=== PATIENT | female | born 1965 | race Hispanic/Latino ===

== ENCOUNTER 2018-08-10 21:52 | Observation (INO) | payer SELFPAY ==
[2018-08-10 22:43] LABS: #Basophils 0.1 thou/uL (0.0-0.2); #Eosinphils 0.2 thou/uL (0.0-0.7); #Lymphocytes 3.8 thou/uL (1.20-3.40); #Monocytes 0.4 thou/uL (0.11-0.59); #Neutrophils 4.4 thou/uL (1.40-6.50); %Basophils 1.2 % (0.0-1.0); %Eosinophils 2.5 % (0.0-10.0); %Lymphocytes 42.4 % (21.0-51.0); %Monocytes 4.1 % (0.0-10.0); %Neutrophils 49.9 % (42.0-75.0); Hemoglobin 13.9 g/dL (12.0-16.0); Mean Corpuscular HGB CONC 34.6 g/dL (32.0-36.0); Mean Corpuscular Hemoglobin 31.5 pg (27.0-31.0); Mean Corpuscular Volume 90.9 fL (78.0-98.0); Platelet Count 200 thou/uL (130-400); RBC Distribution Width 11.2 % (11.5-14.5); Red Blood Cell (RBC) Count 4.42 mill/uL (4.20-5.40); White Blood Cell (WBC) Count 8.9 thou/uL (4.8-10.8)
[2018-08-10 22:59] LABS: ALT (SGPT) 71 U/L (8-55); AST (SGOT) 42 U/L (5-34); Albumin 3.9 g/dL (3.5-5.0); Alkaline Phosphatase 156 U/L (40-150); Anion Gap 12 mmol/L (10-20); BUN (Urea Nitrogen) 11 mg/dL (9.8-20.1); Bilirubin, Total 0.5 mg/dL (0.2-1.2); Calc. Creatinine Clearance 0 mL/min (70-130); Calcium 9.7 mg/dL (7.8-10.44); Carbon Dioxide 26 mmol/L (22-29); Chloride 96 mmol/L (98-107); Estimated GFR-MDRD 72; Globulin 3.6 g/dL (2.4-3.5); Glucose 419 mg/dL (70-105); Protein, Total 7.5 g/dL (6.0-8.3); Sodium 130 mmol/L (136-145)
[2018-08-11] MEDS ORDERED: Aspirin Chewable 81 MG TAB ONE (03:08)
[2018-08-11 03:14] LABS: Troponin I Less than 0.010 ng/mL (< 0.028)
[2018-08-11] MEDS ORDERED: Zolpidem Tartrate 5 MG TAB PO PRN (03:25)
[2018-08-11] MEDS ORDERED: Ondansetron PF 4 MG/2 ML Vial IVP PRN (03:25)
[2018-08-11] MEDS ORDERED: HYDROcodone/Acetaminophen 5/325 mg Tablet PO PRN (03:25)
[2018-08-11] MEDS ORDERED: Acetaminophen 325 MG TAB PO PRN (03:25)
[2018-08-11] MEDS ORDERED: Guaifenesin DM 100-10/5 ML UDCUP PO PRN (03:25)
[2018-08-11] MEDS ORDERED: Benzonatate 100 MG CAP PO PRN (03:32)
[2018-08-11] MEDS ORDERED: Dextrose 5% in Water 1,000 ML IV PRN (03:34)
[2018-08-11] MEDS ORDERED: HumaLOG 300 UNITS/3 ML VIAL SC PRN (03:34)
[2018-08-11] MEDS ORDERED: Dextrose 50% Abboject 50 ML SYRINGE SLOW IVP PRN (03:34)
[2018-08-11 03:59] VITALS: BMI 29.9
[2018-08-11] MEDS ORDERED: cefTRIAXone\\ROCEPHIN 1 GM in Sodium Chloride 0.9% 100 ML IVPB SCH (04:00)
--- NOTE | 2018-08-11 04:42 | HP ---
ADMITTING COMPLAINT: Cough and chest pain. HISTORY OF PRESENT ILLNESS: This is a 52-year-old female, being seen in the ER because of chest pain and coughing. The patient had a chest x-ray as well as CT scan performed in the ER and was found to have a mediastinal lymphadenopathy as well as some mild chest discomfort and cough. The patient states that she denies any nausea, vomiting, diarrhea, constipation, fevers, chills, or shortness of breath. She does admit to prior history of hypertension and diabetes. She states that she has never had any cardiac issues. She does not see any other specialist apart from internal medicine doctor. The patient was seen and examined in the ER. Denies any alleviating or aggravating factors. No other associated symptoms. Daughter is at bedside. All questions were answered. ALLERGIES: NO KNOWN DRUG ALLERGIES. REVIEW OF SYSTEMS: All systems reviewed, pertinent positive in the HPI. SOCIAL HISTORY: Nondrinker and nonsmoker. FAMILY HISTORY: Positive for hypertension and diabetes. PAST MEDICAL HISTORY: Hypertension and diabetes mellitus type 2. HOME MEDICATIONS: See MAR. PHYSICAL EXAMINATION: VITAL SIGNS: Blood pressure is 118/88, respiratory rate of 18, temperature of 99, and O2 saturation is 100% on room air. GENERAL: The patient is lying in bed, in no acute discomfort. HEENT: Pupils are equal, round, and reactive to light and accommodation. Oral cavity is moist and pink. NECK: Supple, mobile, and nontender. Thyroid appreciated. CARDIOVASCULAR: S1 and S2. No murmurs, rubs, or gallops appreciated. PULMONARY: Clear to auscultation bilaterally. No respiratory distress. No increase in AP diameter. ABDOMEN: Positive bowel sounds. Soft, nontender, and nondistended. EXTREMITIES: 2+ peripheral pulses noted. No cyanosis, clubbing, or edema. NEUROLOGIC: Cranial nerves 2 through 12 are intact. No loss of motor or sensory function. LABORATORY DATA: Laboratory antoine: CBC reviewed. Basic metabolic panel reviewed. Sodium found to be 130. DIAGNOSTIC DATA: CT reviewed. Chest x-ray reviewed, dictations also reviewed over the phone. Official reading is pending. ASSESSMENT: 1. Lymphadenopathy. 2. Chest pain. 3. Hypertension. 4. Diabetes mellitus. PLAN: At this point in time, we will admit the patient to observation services. We will start the patient on p.r.n. medication for cough. We will also provide the patient with azithromycin and Rocephin. We will obtain blood cultures, echo, blood pressure/home medications to be continued. The patient is stable with normal white count, can likely be discharged tomorrow with p.o. antibiotics, followed up outpatient. Repeat chest x-ray in 2 weeks once the antibiotic course is completed. Case and plan were discussed with the patient and daughter at length in [place] and in [place], they wish that the patient remains a full code. Case and plan were again discussed at length. They understand and agree with this plan. Job ID: [id number]
[2018-08-11 04:44] LABS: #Basophils 0.1 thou/uL (0.0-0.2); #Eosinphils 0.2 thou/uL (0.0-0.7); #Lymphocytes 3.2 thou/uL (1.20-3.40); #Monocytes 0.3 thou/uL (0.11-0.59); #Neutrophils 3.5 thou/uL (1.40-6.50); %Basophils 1.5 % (0.0-1.0); %Eosinophils 3.1 % (0.0-10.0); %Lymphocytes 43.1 % (21.0-51.0); %Monocytes 4.4 % (0.0-10.0); Hemoglobin 13.7 g/dL (12.0-16.0); Mean Corpuscular HGB CONC 33.3 g/dL (32.0-36.0); Mean Corpuscular Hemoglobin 30.4 pg (27.0-31.0); Mean Corpuscular Volume 91.4 fL (78.0-98.0); Mean Platelet Volume 7.7 fL (7.4-10.4); Platelet Count 201 thou/uL (130-400); RBC Distribution Width 11.3 % (11.5-14.5); Red Blood Cell (RBC) Count 4.51 mill/uL (4.20-5.40); White Blood Cell (WBC) Count 7.3 thou/uL (4.8-10.8)
[2018-08-11] MEDS ORDERED: Azithromycin 500 MG in Sodium Chloride 0.9% 250 ML 250 ML IVPB SCH (05:00)
[2018-08-11 05:05] LABS: Anion Gap 12 mmol/L (10-20); BUN (Urea Nitrogen) 11 mg/dL (9.8-20.1); Calc. Creatinine Clearance 109 mL/min (70-130); Calcium 9.2 mg/dL (7.8-10.44); Carbon Dioxide 26 mmol/L (22-29); Chloride 99 mmol/L (98-107); Estimated GFR-MDRD 86; Glucose 282 mg/dL (70-105); Potassium 3.5 mmol/L (3.5-5.1); Sodium 133 mmol/L (136-145)
[2018-08-11 05:18] LABS: Troponin I Less than 0.010 ng/mL (< 0.028)
[2018-08-11] MEDS: Insulin Regular 300 UNITS/3 ML VIAL SC PRN ×2 (07:01→12:51)
[2018-08-11] MEDS ORDERED: Aspirin 81 mg Enteric Coated Tablet PO SCH (09:00)
[2018-08-11] MEDS ORDERED: Lisinopril 2.5 MG TAB PO SCH (09:00)
[2018-08-11] MEDS ORDERED: Enoxaparin Sodium 40 MG/0.4 ML SYRINGE SC SCH (09:00)
--- NOTE | 2018-08-11 09:33 | RAD ---
FRONTAL RADIOGRAPH CHEST: 08/10/2018 HISTORY: Chest pain. COMPARISON: 06/15/2014 FINDINGS: There is no pneumothorax or pleural fluid and no focal consolidation or alveolar edema. Heart and me diastinal contours are unremarkable. There is right lateral osteophyte formation involving the mid t horacic spine. IMPRESSION: No acute findings. POS: [facility]
--- NOTE | 2018-08-11 09:34 | ULT ---
RIGHT UPPER QUADRANT ULTRASOUND: 08/10/2018 HISTORY: Right upper quadrant pain. COMPARISON: None. TECHNIQUE: Multiplanar rodriguez-scale sonographic imaging of the right upper quadrant provided. FINDINGS: The patient is status post cholecystectomy. The pancreas appears grossly unremarkable, as does the h epatic parenchyma. The common bile duct measures 6 mm, within normal limits. The right kidney measures 10.2 cm in craniocaudal dimension and demonstrates no evidence for stone, h ydronephrosis, or mass lesion. IMPRESSION: 1. No acute findings. 2. Status post cholecystectomy. POS: [facility]
--- NOTE | 2018-08-11 09:41 | CT ---
CTA OF THE THORAX UTILIZING IV CONTRAST AND 3D REFORMATTED IMAGING: INDICATION: A 52-year-old female with intermittent chest pain ongoing for 8 days with referral to the back. The patient reports it is a squeezing sensation and makes the patient dyspneic. COMPARISON: Prior CT of the chest, abdomen, and pelvis dated 09/19/2014. FINDINGS: No definite central or segmental pulmonary embolus is evident. There are patchy areas of suspected s egmental volume loss involving the lower lobes. No confluent airspace opacity, pleural effusion, or pneumothorax is evident. No enlarged mediastinal or hilar lymph nodes are evident. There is a nonsp ecific enlarged left axillary lymph node measuring 1.2 cm. The gallbladder is surgically absent. Ad renal glands appear within normal limits. No focal hepatic lesion is evident. No definite acute osseous abnormality is evident. There is scattered degenerative osteoarthritic aruna nge. IMPRESSION: 1. No central or segmental pulmonary embolus. 2. Nonspecific enlarged left axillary lymph node. POS: [facility]
[2018-08-11 12:15] VITALS: BP 101/59; TEMP 98.6
[2018-08-11] MEDS ORDERED: Iopamidol 370 76% 100 ML VIAL ONE (14:02)
--- NOTE | 2018-08-11 19:14 | DIS ---
DATE OF ADMISSION: 08/11/2018 DATE OF DISCHARGE: 08/11/2018 DIAGNOSES AT THE TIME OF DISCHARGE: 1. Chest pain related to left pectoralis muscle strain. 2. Hypertension. 3. Diabetes mellitus. HOSPITAL COURSE: The patient is a 52-year-old female, who came to the emergency room with chest pain and coughing; although, she denies any coughing during this hospitalization. She had a chest x-ray done. CT scan of the chest to evaluate her chest pain, acute PE was ruled out. She denied any nausea, vomiting, diarrhea, constipation, fevers, chills, or shortness of breath. She has history of hypertension and diabetes mellitus. She never had any cardiac issues prior to this hospitalization. At the time of emergency room visit, her lab work was unremarkable except for sodium, which was 130. Chest x-ray was within normal limits. CT angiogram of the chest showed no PE, just nonspecific left axillary lymph node enlargement. Abdominal ultrasound was done, which did not show any acute abnormalities, status post cholecystectomy. The patient is doing well. She does not complains about any cough or congestion. No wheezing. She complains about the left upper chest pain on palpation. PHYSICAL EXAMINATION: VITAL SIGNS: Blood pressure is 101/59, pulse is 76, temperature is 98.6, maximal temperature during this hospitalization is 98.2, respiratory rate is 20, and O2 saturation 94% on room air. HEENT: Head is atraumatic and normocephalic. Eyes are PERRLA. Sclerae nonicteric. Oral mucosa is moist. LUNGS: Clear. HEART: S1 and S2 normal. No S3. No S4. No any murmur. The left upper chest area, where the left pectorals muscle is, tender to palpation. ABDOMEN: Soft and nontender. EXTREMITIES: No clubbing, cyanosis, or edema. NEUROLOGICAL: She is alert and oriented x4. There is no any motor or sensory deficits present. Cranial nerves are intact. LABORATORY DATA: Normal CBC. Normal BMP except for sodium, which is 133, and glucose is 264, she is advised to put ice pack over this left upper chest area and take ibuprofen 800 mg every 6 hours as needed along with metformin 1000 mg twice a day and insulin 70/30 at home dose usually she takes. Also, she will continue her lisinopril to 2.5 mg and she is going to follow up with her primary care physician in 1 week. ACTIVITIES: As tolerated. DIET: 2000 calories ADA diet. TIME SPENT: Time spent on this discharge is less than 30 minutes. Job ID: [id number]
[2018-08-11] MEDS ORDERED: Atorvastatin Calcium 40 MG TAB PO SCH (21:00)
== END 2018-08-11 15:26 | disposition home or self-care (01) ==
LOC: ERS 21:52 → 2SW 08-11 03:49
PROVIDERS: ADMIT Internal Medicine; ATTEND Internal Medicine
DX: S29.011A Strain of muscle and tendon of front wall of thorax, initial encounter (principal); R59.0 Localized enlarged lymph nodes; I10 Essential (primary) hypertension; E11.9 Type 2 diabetes mellitus without complications; Z79.4 Long term (current) use of insulin
CPT/HCPCS: 36415; 36416; 71045; 71275; 76705; 80048; 80053; 84484; 85025; 87040; 90471; 90732; 93005; 93306; 96365; 96366; 96372; 96375; G0009; G0378; J0456; J0696; J1650; J1815; J7050; Q9967

== ENCOUNTER 2018-09-10 22:24 | Emergency (ER) | payer SELFPAY ==
[2018-09-10 23:08] LABS: #Basophils 0.1 thou/uL (0.0-0.2); #Eosinphils 0.3 thou/uL (0.0-0.7); #Lymphocytes 4.1 thou/uL (1.20-3.40); #Monocytes 0.5 thou/uL (0.11-0.59); #Neutrophils 4.3 thou/uL (1.40-6.50); %Basophils 1.4 % (0.0-1.0); %Eosinophils 3.5 % (0.0-10.0); %Lymphocytes 43.5 % (21.0-51.0); %Monocytes 5.3 % (0.0-10.0); %Neutrophils 46.3 % (42.0-75.0); Hemoglobin 13.8 g/dL (12.0-16.0); Mean Corpuscular HGB CONC 33.5 g/dL (32.0-36.0); Mean Corpuscular Hemoglobin 31.1 pg (27.0-31.0); Mean Platelet Volume 7.5 fL (7.4-10.4); Platelet Count 211 thou/uL (130-400); RBC Distribution Width 11.3 % (11.5-14.5); Red Blood Cell (RBC) Count 4.43 mill/uL (4.20-5.40); White Blood Cell (WBC) Count 9.3 thou/uL (4.8-10.8)
[2018-09-10 23:26] LABS: ALT (SGPT) 49 U/L (8-55); AST (SGOT) 31 U/L (5-34); Albumin 3.8 g/dL (3.5-5.0); Alkaline Phosphatase 141 U/L (40-150); Anion Gap 10 mmol/L (10-20); BUN (Urea Nitrogen) 15 mg/dL (9.8-20.1); Bilirubin, Total 0.3 mg/dL (0.2-1.2); Calc. Creatinine Clearance 0 mL/min (70-130); Calcium 9.5 mg/dL (7.8-10.44); Carbon Dioxide 27 mmol/L (22-29); Chloride 103 mmol/L (98-107); Estimated GFR-MDRD 78; Globulin 3.5 g/dL (2.4-3.5); Glucose 278 mg/dL (70-105); Lipase 25 U/L (8-78); Potassium 3.8 mmol/L (3.5-5.1); Protein, Total 7.3 g/dL (6.0-8.3); Sodium 136 mmol/L (136-145)
[2018-09-11 00:45] LABS: Bilirubin Negative (Negative); Blood, Urine Negative (Negative); Clarity TURBID (Clear); Glucose, Urine (Dipstick) >=1000 mg/dL (Negative); Leukocyte Negative (Negative); Nitrite Negative (Negative); Protein, Urine (Dipstick) Negative (Neg-Trace); pH, Urine 6.5 (5.0-9.0)
== END 2018-09-11 05:24 | disposition left against medical advice (07) ==
LOC: ERS 22:24
DX: Z53.21 Procedure and treatment not carried out due to patient leaving prior to being seen by health care provider (principal)
CPT/HCPCS: 36415; 80053; 81003; 82010; 83690; 85025

== ENCOUNTER 2018-09-11 09:45 | Emergency (ER) | payer SELFPAY ==
[2018-09-11 11:07] LABS: #Basophils 0.1 thou/uL (0.0-0.2); #Eosinphils 0.3 thou/uL (0.0-0.7); #Lymphocytes 2.8 thou/uL (1.20-3.40); #Monocytes 0.4 thou/uL (0.11-0.59); #Neutrophils 3.2 thou/uL (1.40-6.50); %Basophils 0.8 % (0.0-1.0); %Eosinophils 3.8 % (0.0-10.0); %Lymphocytes 42.3 % (21.0-51.0); %Monocytes 5.7 % (0.0-10.0); %Neutrophils 47.5 % (42.0-75.0); Hemoglobin 13.8 g/dL (12.0-16.0); Mean Corpuscular HGB CONC 33.6 g/dL (32.0-36.0); Mean Corpuscular Hemoglobin 31.4 pg (27.0-31.0); Mean Corpuscular Volume 93.3 fL (78.0-98.0); Mean Platelet Volume 7.8 fL (7.4-10.4); Platelet Count 200 thou/uL (130-400); RBC Distribution Width 11.3 % (11.5-14.5); Red Blood Cell (RBC) Count 4.41 mill/uL (4.20-5.40); White Blood Cell (WBC) Count 6.7 thou/uL (4.8-10.8)
[2018-09-11 11:23] LABS: Bilirubin Negative (Negative); Blood, Urine Negative (Negative); Clarity CLEAR (Clear); Glucose, Urine (Dipstick) >=1000 mg/dL (Negative); Leukocyte Negative (Negative); Nitrite Negative (Negative); Protein, Urine (Dipstick) Negative (Neg-Trace); Specific Gravity, Urine 1.039 (1.002-1.036); pH, Urine 5.5 (5.0-9.0)
[2018-09-11 11:36] LABS: ALT (SGPT) 55 U/L (8-55); AST (SGOT) 36 U/L (5-34); Albumin 3.9 g/dL (3.5-5.0); Alkaline Phosphatase 139 U/L (40-150); Anion Gap 10 mmol/L (10-20); BUN (Urea Nitrogen) 15 mg/dL (9.8-20.1); Bilirubin, Total 0.7 mg/dL (0.2-1.2); Calc. Creatinine Clearance 0 mL/min (70-130); Calcium 9.7 mg/dL (7.8-10.44); Carbon Dioxide 28 mmol/L (22-29); Chloride 102 mmol/L (98-107); Estimated GFR-MDRD 81; Globulin 3.4 g/dL (2.4-3.5); Glucose 305 mg/dL (70-105); Lipase 17 U/L (8-78); Protein, Total 7.3 g/dL (6.0-8.3); Sodium 136 mmol/L (136-145)
[2018-09-11] MEDS ORDERED: Ketorolac Tromethamine 30 MG/ML VIAL ONE (12:21)
[2018-09-11] MEDS ORDERED: Dicyclomine 20 MG TAB ONE (12:21)
[2018-09-11] MEDS ORDERED: Ondansetron ODT 4 MG TAB ONE (12:21)
== END 2018-09-11 12:35 | disposition home or self-care (01) ==
LOC: ERS 09:45
DX: R10.9 Unspecified abdominal pain (principal); E11.65 Type 2 diabetes mellitus with hyperglycemia; E78.5 Hyperlipidemia, unspecified; I10 Essential (primary) hypertension
CPT/HCPCS: 36415; 80053; 83605; 83690; 85025; 96372; J1885; Q0162

== ENCOUNTER 2018-11-22 23:31 | Emergency (ER) | payer SELFPAY ==
[2018-11-23 00:10] LABS: #Basophils 0.1 thou/uL (0.0-0.2); #Eosinphils 0.3 thou/uL (0.0-0.7); #Lymphocytes 2.9 thou/uL (1.20-3.40); #Monocytes 0.6 thou/uL (0.11-0.59); #Neutrophils 7.5 thou/uL (1.40-6.50); %Basophils 0.6 % (0.0-1.0); %Eosinophils 2.4 % (0.0-10.0); %Lymphocytes 25.5 % (21.0-51.0); %Monocytes 5.1 % (0.0-10.0); %Neutrophils 66.4 % (42.0-75.0); Hemoglobin 13.7 g/dL (12.0-16.0); Mean Corpuscular HGB CONC 33.6 g/dL (32.0-36.0); Mean Corpuscular Hemoglobin 31.1 pg (27.0-31.0); Mean Corpuscular Volume 92.8 fL (78.0-98.0); Mean Platelet Volume 7.2 fL (7.4-10.4); Platelet Count 216 thou/uL (130-400); RBC Distribution Width 11.2 % (11.5-14.5); Red Blood Cell (RBC) Count 4.39 mill/uL (4.20-5.40); White Blood Cell (WBC) Count 11.3 thou/uL (4.8-10.8)
[2018-11-23 00:32] LABS: ALT (SGPT) 38 U/L (8-55); AST (SGOT) 21 U/L (5-34); Albumin 3.7 g/dL (3.5-5.0); Alkaline Phosphatase 136 U/L (40-150); Anion Gap 15 mmol/L (10-20); BUN (Urea Nitrogen) 14 mg/dL (9.8-20.1); Bilirubin, Total 0.6 mg/dL (0.2-1.2); Calc. Creatinine Clearance 0 mL/min (70-130); Calcium 9.2 mg/dL (7.8-10.44); Carbon Dioxide 22 mmol/L (22-29); Chloride 99 mmol/L (98-107); Estimated GFR-MDRD 73; Globulin 3.6 g/dL (2.4-3.5); Glucose 354 mg/dL (70-105); Lipase 18 U/L (8-78); Protein, Total 7.3 g/dL (6.0-8.3); Sodium 132 mmol/L (136-145)
[2018-11-23 01:02] LABS: Bilirubin Negative (Negative); Blood, Urine 1+ (Negative); Clarity Extra Turbid (Clear); Glucose, Urine (Dipstick) Greater than 1000 mg/dL (Negative); Leukocyte 500 Leu/uL (Negative); Nitrite Negative (Negative); Protein, Urine (Dipstick) 50 mg/dL (Neg-Trace); RBC/HPF 21-50 HPF (0-3); Urobilinogen Normal mg/dL (Less than 2); WBC/HPF Greater than 50 HPF (0-3)
[2018-11-23 01:04] LABS: Bacteria/HPF 1+ HPF (None Seen)
[2018-11-23] MEDS ORDERED: cefTRIAXone\\ROCEPHIN 1 GM VIAL ONE (01:18)
[2018-11-23] MEDS ORDERED: Morphine 4 MG/ML VIAL ONE (01:18)
[2018-11-23] MEDS ORDERED: Ondansetron PF 4 MG/2 ML Vial ONE (01:18)
== END 2018-11-23 03:26 | disposition home or self-care (01) ==
LOC: ERS 23:31
DX: R10.30 Lower abdominal pain, unspecified (principal); R10.811 Right upper quadrant abdominal tenderness; N39.0 Urinary tract infection, site not specified; E11.65 Type 2 diabetes mellitus with hyperglycemia; I10 Essential (primary) hypertension; E78.5 Hyperlipidemia, unspecified
CPT/HCPCS: 36415; 36416; 80053; 81003; 81015; 83690; 85025; 96361; 96365; 96375; J0696; J2270; J2405

== ENCOUNTER 2019-04-21 20:49 | Observation (INO) | payer MEDICAID, SELFPAY ==
[2019-04-21 21:47] LABS: #Lymphocytes 1.2 thou/uL (1.20-3.40); #Monocytes 0.3 thou/uL (0.11-0.59); %Basophils 0.4 % (0.0-1.0); %Eosinophils 0.5 % (0.0-10.0); %Lymphocytes 34.8 % (21.0-51.0); %Monocytes 7.5 % (0.0-10.0); Hemoglobin 15.2 g/dL (12.0-16.0); Mean Corpuscular HGB CONC 33.5 g/dL (32.0-36.0); Mean Corpuscular Volume 92.5 fL (78.0-98.0); Mean Platelet Volume 7.9 fL (7.4-10.4); Platelet Count 143 thou/uL (130-400); RBC Distribution Width 11.3 % (11.5-14.5); Red Blood Cell (RBC) Count 4.91 mill/uL (4.20-5.40); White Blood Cell (WBC) Count 3.4 thou/uL (4.8-10.8)
[2019-04-21 22:07] LABS: ALT (SGPT) 60 U/L (8-55); AST (SGOT) 41 U/L (5-34); Alkaline Phosphatase 150 U/L (40-110); Anion Gap 13 mmol/L (10-20); BUN (Urea Nitrogen) 9 mg/dL (9.8-20.1); Bilirubin, Total 0.4 mg/dL (0.2-1.2); Calc. Creatinine Clearance 0 mL/min (70-130); Calcium 9.7 mg/dL (7.8-10.44); Carbon Dioxide 23 mmol/L (22-29); Chloride 96 mmol/L (98-107); Estimated GFR-MDRD 55; Globulin 3.5 g/dL (2.4-3.5); Potassium 3.9 mmol/L (3.5-5.1); Protein, Total 7.5 g/dL (6.0-8.3); Sodium 128 mmol/L (136-145)
[2019-04-21 22:09] LABS: Magnesium 1.9 mg/dL (1.6-2.6); Phosphorus 3.6 mg/dL (2.3-4.7)
[2019-04-21 22:21] LABS: Glucose 649 mg/dL (70-105)
[2019-04-21] MEDS ORDERED: Insulin Regular 300 UNITS/3 ML VIAL ONE (22:43)
[2019-04-21 23:15] LABS: Bilirubin Negative (Negative); Blood, Urine Negative (Negative); Clarity Clear (Clear); Glucose, Urine (Dipstick) Greater than 1000 mg/dL (Negative); Leukocyte Negative Leu/uL (Negative); Nitrite Negative (Negative); Protein, Urine (Dipstick) Negative (Neg-Trace); Urobilinogen Normal mg/dL (Less than 2)
[2019-04-22] MEDS ORDERED: Senokot S 8.6-50 MG TAB PO PRN (00:42)
[2019-04-22] MEDS ORDERED: Dextrose 50% Abboject 50 ML SYRINGE SLOW IVP PRN (00:44)
[2019-04-22] MEDS ORDERED: Dextrose 5% in Water 1,000 ML IV PRN (00:44)
[2019-04-22] MEDS: Acetaminophen 325 MG TAB PO PRN ×2 (01:10→10:50)
--- NOTE | 2019-04-22 04:23 | HP ---
CHIEF COMPLAINT: Generalized weakness and chills. HISTORY OF PRESENT ILLNESS: The patient is a 53-year-old female with a history of diabetes, who presents to the hospital with complaints of generalized weakness and some chills and not feeling well for the past couple of days. The patient's daughter who was at the bedside has been translating. She stated that the patient has not been feeling well for the past couple of days and today she noticed her blood sugar reading very high, so they came into the ER for further evaluation. According to the family, the patient has been taking her Lantus and also has been taking her metformin. Denies any temperature. Denies any diarrhea. However, has not been eating very much for the past few days, has been feeling nauseous. Denies any chest pain or shortness of breath. PAST MEDICAL HISTORY: Includes hypertension, diabetes. PAST SURGICAL HISTORY: Cholecystectomy. REVIEW OF SYSTEMS: All negative except for the ones mentioned above in the HPI. PHYSICAL EXAMINATION: VITAL SIGNS: As of the following; temperature of 98.6, 76, 20, blood pressure 101/59. GENERAL: She is awake, alert, and oriented x3. Does not appear in any distress. HEENT: Normocephalic, atraumatic. No lymphadenopathy noted. Pupils equal and reactive to light. She did have some pain to her left ear area. Bilateral ear exam was done, I did not see any erythema. Her tympanic membrane appeared intact. CV: S1 and S2 present. No murmurs, rubs, or gallops. LUNGS: Clear to auscultation. No rhonchi or wheezes noted. ABDOMEN: Soft and nontender. Bowel sounds are present x2. EXTREMITIES: No edema. Pedal pulses present x2. SOCIAL HISTORY: She denies any alcohol use, drug use, or smoking history. She is a full code. FAMILY HISTORY: History of diabetes. LABORATORY RESULTS: Sodium of 128, potassium of 3.9, BUN of 9, creatinine of 1.04. Her sugar was 649. Had mildly elevated LFTs. Her lipase has not been checked. CBC: WBC of 3.4, hemoglobin of 15.2, hematocrit of 45.5. Her platelets are 143. Urine just indicated a lot of glucose, otherwise it was normal. She did not have a chest x-ray. ASSESSMENT AND PLAN: The patient is a very pleasant 53-year-old female who presents to the hospital with generalized body aches and pain and was found to be hyperglycemic. 1. Hyperglycemia-there is no diabetic ketoacidosis. The patient was given some IV hydration. We will continue that and will also start her on her home dose of insulin. We will check a hemoglobin A1c and continue to monitor. 2. Generalized weakness and chills. The patient's WBCs are a little bit lower, but she does not have any left shift. I will check her for flu. I will also get a chest x-ray. However, she has not been complaining of any cough, just body aches. I will hold off on starting any antibiotics for now. 3. Elevated liver function tests. The patient has had mild elevated liver function tests in the past. We will recheck another CMP in the morning. If they continue to be elevated, may consider getting a right upper quadrant ultrasound. The patient possibly could have a fatty liver disease. 4. Deep venous thrombosis prophylaxis. We will put the patient on some sequential compression devices. 5. The patient complains of a headache, frontal and occipital. She states that she has been having headaches in the past. I will also check an ESR on this lady just to make sure there is nothing else going on. Job ID: [id number]
[2019-04-22 06:05] LABS: #Lymphocytes 1.2 thou/uL (1.20-3.40); #Monocytes 0.2 thou/uL (0.11-0.59); #Neutrophils 1.1 thou/uL (1.40-6.50); %Basophils 0.7 % (0.0-1.0); %Eosinophils 0.9 % (0.0-10.0); %Lymphocytes 47.5 % (21.0-51.0); %Monocytes 9.3 % (0.0-10.0); %Neutrophils 41.6 % (42.0-75.0); Hemoglobin 13.4 g/dL (12.0-16.0); Mean Corpuscular HGB CONC 33.7 g/dL (32.0-36.0); Mean Corpuscular Hemoglobin 30.9 pg (27.0-31.0); Mean Corpuscular Volume 91.5 fL (78.0-98.0); Mean Platelet Volume 7.4 fL (7.4-10.4); Platelet Count 126 thou/uL (130-400); RBC Distribution Width 11.3 % (11.5-14.5); Red Blood Cell (RBC) Count 4.34 mill/uL (4.20-5.40); White Blood Cell (WBC) Count 2.6 thou/uL (4.8-10.8)
[2019-04-22 06:13] LABS: Hemoglobin A1c 12.9 % (4.0-6.0)
[2019-04-22 06:28] LABS: Anion Gap 8 mmol/L (10-20); BUN (Urea Nitrogen) 7 mg/dL (9.8-20.1); Calc. Creatinine Clearance 285 mL/min (70-130); Calcium 8.4 mg/dL (7.8-10.44); Carbon Dioxide 23 mmol/L (22-29); Chloride 105 mmol/L (98-107); Estimated GFR-MDRD Greater than 90; Glucose 248 mg/dL (70-105); Potassium 3.7 mmol/L (3.5-5.1); Sodium 132 mmol/L (136-145)
[2019-04-22] MEDS: HumaLOG 300 UNITS/3 ML VIAL SC PRN ×2 (06:58→12:46)
--- NOTE | 2019-04-22 07:39 | RAD ---
Chest AP view INDICATION: Weakness COMPARISON: August 10, 2018 FINDINGS: Lungs:The lungs are clear Cardiac silhouette:The cardiomediastinal silhouette appears within normal limits. Pulmonary vasculature:Normal Pleural spaces:No pleural effusion or pneumothorax is demonstrated. Upper abdomen:No abnormality seen. Osseous structures: No acute osseous abnormality. Additional findings:None. IMPRESSION: No acute cardiopulmonary abnormality.
[2019-04-22 07:54] VITALS: TEMP 98.6
[2019-04-22] MEDS ORDERED: Enoxaparin Sodium 40 MG/0.4 ML SYRINGE SC SCH (09:00)
[2019-04-22] MEDS ORDERED: Insulin Glargine 40 UNITS in Pre-Filled Syringe 1 EACH SC SCH (09:00)
[2019-04-22 11:38] VITALS: BP 140/79
--- NOTE | 2019-04-24 14:05 | DIS ---
DATE OF ADMISSION: 04/22/2019 DATE OF DISCHARGE: 04/22/2019 DISCHARGE DIAGNOSES: 1. Viral syndrome. 2. Hyperglycemia. 3. Elevated liver enzymes. HISTORY: This patient is a 53-year-old female with a history of diabetes mellitus, who presented to the hospital with generalized weakness and chills for a couple of days. She noted her blood sugars have been running very high at home as well. She had reportedly been taking her medications as prescribed, but had not been eating much because of feeling poorly and her initial workup was noted for a glucose of 649 with pseudohyponatremia. White count was 3.4. Chest x-ray was negative. She did have some elevation of her liver enzymes with AST 41, ALT 60, and alkaline phosphatase of 150. HOSPITAL COURSE: The patient was admitted, started on aggressive insulin therapy and her blood sugars did improve. Her thyroid was normal. Her hemoglobin A1c was 12.9 consistent with chronic severe hyperglycemia and poorly controlled diabetes. Her subsequent CBC revealed a white count of 2.6. She remained afebrile and it was felt ultimately that she was likely suffering from some type of underlying viral syndrome. Her respiratory viral panel was negative. The patient was feeling some better after some fluids and improvement in her blood sugars and was felt to be stable for discharge. DISCHARGE PHYSICAL EXAMINATION: VITAL SIGNS: At time of discharge, temperature was 98.6, pulse 92, respirations 20, O2 saturation was 96% on room air, blood pressure was 140/79. GENERAL: She was awake and alert. HEART: Regular rate and rhythm without murmurs. LUNGS: Clear bilaterally. ABDOMEN: Soft, nontender, nondistended. EXTREMITIES: No edema. DISPOSITION: The patient is discharged to home. She is to have a diabetic diet. ACTIVITY: As tolerated. FOLLOWUP: She is to follow up at the [facility] within 7 days and she already has that appointment scheduled fortunately. She will be on metformin with increased dose of 1000 mg t.i.d. with meals and she will continue with the insulin 40 units subcu every morning. She can return to the hospital should she have any need to do so prior to her followup. Job ID: [id number]
== END 2019-04-22 17:20 | disposition home or self-care (01) ==
LOC: ERS 20:49 → 3SE 04-22 00:22
PROVIDERS: ADMIT Internal Medicine; ATTEND Internal Medicine
DX: E11.65 Type 2 diabetes mellitus with hyperglycemia (principal); R74.8 Abnormal levels of other serum enzymes; B34.9 Viral infection, unspecified; I10 Essential (primary) hypertension; Z79.4 Long term (current) use of insulin; Z79.899 Other long term (current) drug therapy
CPT/HCPCS: 36415; 36416; 71045; 80048; 80053; 81003; 82010; 83036; 83735; 84100; 84443; 85025; 85652; 87633; 87798; 93005; 96361; 96372; 96374; G0378; J1650; J1815

== ENCOUNTER 2019-05-09 08:25 | Observation (INO) | payer MEDICAID, SELFPAY ==
[2019-05-09] MEDS ORDERED: Fentanyl 100 MCG/2 ML VIAL ONE (09:06)
[2019-05-09] MEDS ORDERED: Metoclopramide HCl 10 MG/2 ML VIAL ONE (09:07)
[2019-05-09 09:15] LABS: Bacteria/HPF None Seen HPF (None Seen); Bilirubin Negative (Negative); Blood, Urine Negative (Negative); Clarity Clear (Clear); Glucose, Urine (Dipstick) Greater than 1000 mg/dL (Negative); Leukocyte 75 Leu/uL (Negative); Nitrite Negative (Negative); Protein, Urine (Dipstick) 50 mg/dL (Neg-Trace); RBC/HPF 0-3 HPF (0-3); Urobilinogen Normal mg/dL (Less than 2)
[2019-05-09 09:18] LABS: Pregnancy Test - Urine (BHCG) Negative (Negative); Pregu Control Background? CLEAR/WHITE (CLR/WHITE); Pregu Control Bar Appear? YES (CONTROL BAR); Specific Gravity 1.042 (1.002-1.036)
[2019-05-09 09:32] LABS: #Lymphocytes 1.1 thou/uL (1.20-3.40); #Monocytes 0.5 thou/uL (0.11-0.59); #Neutrophils 3.5 thou/uL (1.40-6.50); %Basophils 0.6 % (0.0-1.0); %Eosinophils 0.7 % (0.0-10.0); %Lymphocytes 21.7 % (21.0-51.0); %Monocytes 8.7 % (0.0-10.0); %Neutrophils 68.3 % (42.0-75.0); Hemoglobin 14.5 g/dL (12.0-16.0); Mean Corpuscular HGB CONC 34.9 g/dL (32.0-36.0); Mean Corpuscular Hemoglobin 31.4 pg (27.0-31.0); Mean Platelet Volume 8.2 fL (7.4-10.4); Platelet Count 220 thou/uL (130-400); RBC Distribution Width 11.3 % (11.5-14.5); White Blood Cell (WBC) Count 5.1 thou/uL (4.8-10.8)
[2019-05-09 09:58] LABS: ALT (SGPT) 37 U/L (8-55); AST (SGOT) 26 U/L (5-34); Albumin 3.6 g/dL (3.5-5.0); Alkaline Phosphatase 120 U/L (40-110); Anion Gap 12 mmol/L (10-20); BUN (Urea Nitrogen) 16 mg/dL (9.8-20.1); Bilirubin, Total 0.9 mg/dL (0.2-1.2); Calc. Creatinine Clearance 0 mL/min (70-130); Calcium 8.4 mg/dL (7.8-10.44); Carbon Dioxide 20 mmol/L (22-29); Chloride 104 mmol/L (98-107); Estimated GFR-MDRD 86; Globulin 2.9 g/dL (2.4-3.5); Glucose 314 mg/dL (70-105); Lipase 11 U/L (8-78); Protein, Total 6.5 g/dL (6.0-8.3); Sodium 133 mmol/L (136-145)
[2019-05-09 10:05] LABS: Potassium 2.5 mmol/L (3.5-5.1)
[2019-05-09] MEDS ORDERED: Potassium Chloride 40 MEQ in Sodium Chloride 0.9% 250 ML 250 ML IVPB SCH ×2 (11:15→15:00)
--- NOTE | 2019-05-09 11:24 | CT ---
EXAM: CT abdomen and pelvis with IV contrast PROVIDED CLINICAL HISTORY: Abdominal pain COMPARISON: 07/11/2014 FINDINGS: The visualized lung bases are free of significant opacity. The solid abdominal organs demonstrate no acute abnormality. Stable left renal calculus. There is no bowel dilatation, inflammatory fat stranding, free fluid or free air apparent. There is n o evidence for appendicitis. Fluid density within the colon, which can be seen in the setting of a diarrheal illness. No regional lymph node enlargement apparent. The regional major vascular structures appear unremarkab le. The osseous structures demonstrate no concerning lytic or blastic lesions. IMPRESSION: Fluid density within the colon, which can be seen in the setting of a diarrheal illness.
[2019-05-09] MEDS ORDERED: Iopamidol-370 76% 500 ML 1 ML ONE (11:32)
[2019-05-09 11:35] LABS: Base Excess-Venous -3.3 mmol/L (-2.0 to 3.0); Bicarbonate (HCO3v) 21.9 mmol/L (22.0-28.0); CO2 Tension (PvCO2) 38.8 mmHg (40.0-50.0); Chloride 105 mmol/L (98-107); Hemoglobin - Calc 12.3 g/dL (12.0-16.0); Potassium 2.6 mmol/L (3.5-5.1); Sodium 135 mmol/L (138-145); vO2 Saturation-calc 96.7 % (60.0-85.0)
[2019-05-09 13:29] VITALS: BMI 29.5
[2019-05-09] MEDS ORDERED: HYDROcodone/Acetaminophen 5/325 mg Tablet PO PRN ×2 (13:32)
[2019-05-09] MEDS ORDERED: Acetaminophen 325 MG TAB PO PRN (13:32)
[2019-05-09] MEDS ORDERED: Ondansetron ODT 4 MG TAB SL PRN (13:32)
[2019-05-09] MEDS ORDERED: Lactated Ringer's 1,000 ML IV SCH (13:45)
[2019-05-09] MEDS ORDERED: Magnesium Sulfate 4 GM in Sodium Chloride 0.9% 250 ML 250 ML IVPB SCH (14:30)
[2019-05-09] MEDS ORDERED: Dextrose 5% in Water 1,000 ML IV PRN (14:41)
[2019-05-09] MEDS ORDERED: Dextrose 50% Abboject 50 ML SYRINGE SLOW IVP PRN (14:41)
[2019-05-09] MEDS ORDERED: Enoxaparin Sodium 40 MG/0.4 ML SYRINGE SC SCH (14:45)
--- NOTE | 2019-05-09 15:28 | HP ---
PRIMARY CARE PROVIDER: [facility]. CHIEF COMPLAINT: Abdominal pain with nausea, vomiting, and diarrhea. HISTORY OF PRESENT ILLNESS: A 53-year-old female with past medical history significant for obesity and insulin-requiring diabetes mellitus, who presents to the hospital with acute onset of diarrhea, nausea and vomiting. The patient reportedly developed diarrhea and subsequently nausea and vomiting about 4 hours after a meal of soup, which also was taken by other family members without any problem. Symptoms reportedly started on May 07 night and the patient has had frequent loose stools and nausea and vomiting since then. She reportedly had more than 20 frequent loose stools and emesis, yesterday, May 08. She admitted to generalized weakness, dizziness, and near syncope. She also admitted to chills, but denied fever, hematemesis, hematochezia, dysuria, hematuria, or melena. She admitted to abdominal pain, which started yesterday as was rated at 7/10 during my visit. Abdominal pain is said to be diffuse, involving the whole abdomen, but more marked on the left lower quadrant. She denied focal weakness, chest pain, cough, shortness of breath, nasal congestion, upper respiratory symptoms, or leg swelling. PAST MEDICAL HISTORY: 1. Trace mitral regurgitation. 2. Hypertension. 3. Diabetes mellitus. 4. Obesity. PAST SURGICAL HISTORY: Cholecystectomy. FAMILY HISTORY: Significant for diabetes and hypertension in both parents. SOCIAL HISTORY: The patient lives with family. Denied alcohol, drug use, or smoking. She wants to be full code. ALLERGIES: NO KNOWN DRUG ALLERGIES REPORTED. HOME MEDICATIONS: 1. Levemir 40 units daily in the morning. 2. Metformin 500 mg p.o. daily in the evening. REVIEW OF SYSTEMS: A 12-point review of system performed was negative other than pertinent positives and negatives included in the history of present illness. PHYSICAL EXAMINATION: VITAL SIGNS: Current vitals; temperature 98.8, pulse 102, respiratory rate 16, SpO2 of 97 on room air, and blood pressure is 117/55. GENERAL: Obese female, in no obvious distress. Afebrile. Anicteric. Acyanotic. HEENT: Normocephalic, atraumatic. Oral mucosa is moist. NECK: Supple, symmetrical, with no JVD. CARDIOVASCULAR: Regular rhythm and rate with normal heart sounds one and two. RESPIRATORY: Good air entry bilaterally with no crackles, rhonchi, or use of accessory muscles. GI: Obese, soft, with [id number] tenderness diffusely, more marked in left lower quadrant. Bowel sound is normoactive. EXTREMITIES: Grossly normal looking, atraumatic, with no edema or erythema. CREAM TESTER: Conscious, alert, and oriented x3 with appropriate mental status. Cranial nerves 2 through 12 are grossly intact. DIAGNOSTIC DATA: CBC showed WBC count of 5.1, hemoglobin of 14.5, MCV of 90, and platelets of 220. CMP showed sodium 133, potassium 2.5, chloride 104, CO2 of 20, BUN 16, creatinine 0.71, anion gap 12, glucose 314, calcium 8.4, total bilirubin 0.9, AST 26, ALT 37, alkaline phosphatase 120, total protein 6.5, albumin 3.6, and globulin 2.9. Magnesium is 1.4. Venous blood gas showed pH of 7.358 with pCO2 of 38.8. Urinalysis showed yellow clear urine with pH of 6.0, specific gravity of 1.042. Urine protein of 50 mg/dL, urine glucose more than 1000, ketones 100, negative blood, nitrite, bilirubin with normal urobilinogen. Leukocyte esterase was elevated at 75. Microscopy showed 0 to 3 rbc's and 7 to 10 wbc's with 10 to 20 squamous cells. Beta hydroxybutyrate was 1.14. CT scan of the abdomen and pelvis with contrast showed stable left renal calculus with no bowel dilatation, inflammatory fat stranding, free fluid or free air present. Fluid density within the colon is noted and this could be seen in the setting of diarrheal illness. ASSESSMENT: 1. Acute gastroenteritis. Most likely related to food poisoning. 2. Insulin-requiring diabetes mellitus with early mild diabetic ketoacidosis. 3. Volume contraction. 4. Severe hypokalemia. 5. Hypomagnesemia. 6. Physical deconditioning. PLAN: 1. IV fluid therapy with LR will be provided. 2. We will also replete serum potassium with potassium chloride both intravenously and orally. 3. We will replete serum magnesium with magnesium sulfate 4 g. 4. We will get stool culture panel. 5. We will continue insulin therapy. 6. We will, however, hold metformin. 7. Oral intake as tolerated will be commenced. 8. Antiemetic as needed also will be provided. 9. DVT prophylaxis with Lovenox as well as GI bleeding prophylaxis with Pepcid will be provided. 10. Code, full code. Further treatment to follow depending on hospital course. We will recheck electrolytes and CBC in the morning. Job ID: [id number]
[2019-05-09] MEDS: Lactated Ringer's 1,000 ML IV SCH ×2 (16:26→21:48)
[2019-05-09] MEDS: HumaLOG 300 UNITS/3 ML VIAL SC PRN (16:34)
[2019-05-09] MEDS: Famotidine/PF 20 mg/2ml Vial SLOW IVP SCH (20:23)
[2019-05-09] MEDS: Famotidine 20 MG TAB PO SCH (20:39)
[2019-05-09] MEDS ORDERED: HumaLOG 300 UNITS/3 ML VIAL SC PRN (22:24)
[2019-05-10] MEDS: Lactated Ringer's 1,000 ML IV SCH ×5 (04:45→20:50)
[2019-05-10 05:21] LABS: Hemoglobin A1c 12.3 % (4.0-6.0)
[2019-05-10 05:40] LABS: ALT (SGPT) 36 U/L (8-55); AST (SGOT) 37 U/L (5-34); Albumin 2.9 g/dL (3.5-5.0); Alkaline Phosphatase 102 U/L (40-110); Anion Gap 8 mmol/L (10-20); BUN (Urea Nitrogen) 11 mg/dL (9.8-20.1); Bilirubin, Total 0.6 mg/dL (0.2-1.2); Calc. Creatinine Clearance 128 mL/min (70-130); Calcium 7.8 mg/dL (7.8-10.44); Carbon Dioxide 22 mmol/L (22-29); Chloride 108 mmol/L (98-107); Estimated GFR-MDRD Greater than 90; Globulin 2.7 g/dL (2.4-3.5); Glucose 175 mg/dL (70-105); Potassium 4.2 mmol/L (3.5-5.1); Protein, Total 5.6 g/dL (6.0-8.3); Sodium 134 mmol/L (136-145)
[2019-05-10] MEDS: HumaLOG 300 UNITS/3 ML VIAL SC PRN ×2 (06:08→16:44)
[2019-05-10 06:22] LABS: Hemoglobin 11.7 g/dL (12.0-16.0); Mean Corpuscular HGB CONC 35.1 g/dL (32.0-36.0); Mean Corpuscular Hemoglobin 31.9 pg (27.0-31.0); Mean Corpuscular Volume 90.9 fL (78.0-98.0); Mean Platelet Volume 7.7 fL (7.4-10.4); Platelet Count 160 thou/uL (130-400); RBC Distribution Width 11.2 % (11.5-14.5); Red Blood Cell (RBC) Count 3.68 mill/uL (4.20-5.40); White Blood Cell (WBC) Count 4.6 thou/uL (4.8-10.8)
[2019-05-10 06:50] LABS: Band 13 % (5-11); Eosinophils 1 % (0-10); Lymphocytes 54 % (21-51); MDiff Complete? YES; Monocytes 7 % (0-10); Neutrophil 22 % (42-75); Reactive Lymphocytes 3 % (0-10)
[2019-05-10] MEDS: Famotidine/PF 20 mg/2ml Vial SLOW IVP SCH ×2 (07:55→19:14)
[2019-05-10] MEDS ORDERED: Insulin Glargine 40 UNITS in Pre-Filled Syringe 1 EACH SC SCH (09:00)
[2019-05-10] MEDS ORDERED: INSULIN DETEMIR 40 UNIT SC SCH (09:00)
[2019-05-10] MEDS: Enoxaparin Sodium 40 MG/0.4 ML SYRINGE SC SCH (09:06)
[2019-05-10] MEDS: Famotidine 20 MG TAB PO SCH ×2 (09:07→20:51)
--- NOTE | 2019-05-10 10:34 | PDOC.HOSPP ---
- Subjective Encounter Date: 05/10/19 Encounter Time: 10:32 Subjective: 53 y/o female with obesity, DM admitted with acute onset of frequent emesis and loose stools associated abdominal pain and with weakness. Feeling better. No fever, chest pain, SOB or dysuria. - Objective Vital Signs & Weight: Vital Signs (12 hours) Temp Pulse Resp BP BP Pulse Ox 05/10/19 08:08 98.5 F 97 16 112/56 L 96 05/10/19 04:42 97.7 F 95 18 98/53 L 95 Weight Weight 161 lb 11.2 oz I&O: 05/09/19 05/10/19 05/11/19 06:59 06:59 06:59 Intake Total 2906 Output Total 850 Balance 2055 Result Diagrams: 05/10/19 04:47 05/10/19 04:47 Additional Labs: Accuchecks 05/09/19 05/09/19 21:40 15:57 POC Glucose 228 H 232 H Hospitalist ROS - Medication Medications: Active Medications Generic Name Dose Route Start Last Admin Trade Name Freq PRN Reason Stop Dose Admin Enoxaparin Sodium 40 mg 05/10/19 09:00 05/10/19 09:06 Lovenox SC 40 mg 0900 DAMI Administration Famotidine 20 mg 05/09/19 21:00 05/10/19 07:55 Pepcid SLOW IVP Not Given Q12HR DAMI Famotidine 20 mg 05/09/19 21:00 05/10/19 09:07 Pepcid PO 20 mg BID DAMI Administration Insulin Glargine 40 units/ 0.4 mls @ 0 mls/hr 05/10/19 09:00 05/10/19 09:07 Miscellaneous Medication SC 0.4 mls QAM DAMI Administration As Directed Lactated Ringer's 1,000 mls @ 200 mls/hr 05/10/19 06:38 05/10/19 07:40 Lactated Ringer's IV Not Given .Q5H DAMI Insulin Human Lispro 0 units 05/09/19 14:41 05/10/19 06:08 Humalog SC 2 unit .MODERATE SLIDING SC PRN Administration Moderate Correctional Scale Insulin Human Lispro 0 units 05/09/19 22:24 05/09/19 22:38 Humalog SC 2 unit .BEDTIME SLIDING SC PRN Administration Bedtime Correctional Scale - Exam General Appearance: awake alert Eye: anicteric sclera ENT: normocephalic atraumatic Neck: symmetric, no JVD Heart: RRR, no murmur Respiratory: no wheezes, no rales, no ronchi, normal chest expansion Gastrointestinal: soft, non-tender, non-distended, normal bowel sounds Gastrointestinal - other findings: obese Extremities: no cyanosis, no edema Neurological: cranial nerve grossly intact, no focal deficits Psychiatric: A&O x 3 Hosp A/P (1) Acute gastroenteritis Code(s): K52.9 - NONINFECTIVE GASTROENTERITIS AND COLITIS, UNSPECIFIED Status : Acute (2) Uncontrolled diabetes mellitus Code(s): E11.65 - TYPE 2 DIABETES MELLITUS WITH HYPERGLYCEMIA Status: Acute (3) YANICK (acute kidney injury) Code(s): N17.9 - ACUTE KIDNEY FAILURE, UNSPECIFIED Status: Acute (4) Morbid obesity Code(s): E66.01 - MORBID (SEVERE) OBESITY DUE TO EXCESS CALORIES Status: Acute (5) Acute anemia Code(s): D64.9 - ANEMIA, UNSPECIFIED Status: Acute (6) Volume depletion Code(s): E86.9 - VOLUME DEPLETION, UNSPECIFIED Status: Acute (7) Hypokalemia Code(s): E87.6 - HYPOKALEMIA Status: Acute (8) Hypomagnesemia Code(s): E83.42 - HYPOMAGNESEMIA Status: Acute (9) Hyponatremia Code(s): E87.1 - HYPO-OSMOLALITY AND HYPONATREMIA Status: Acute - Plan increase IVF rate. Restart metformin Increase lantus to 50 given A1c of 12. Meteorology Faculty Member consult.
[2019-05-10] MEDS ORDERED: Insulin Glargine 10 UNITS in Pre-Filled Syringe 1 EACH SC SCH (10:45)
[2019-05-10] MEDS: metFORMIN 500 MG TAB PO SCH (16:12)
[2019-05-10] MEDS: Acetaminophen 325 MG TAB PO PRN (16:12)
[2019-05-10] MEDS: Ondansetron PF 4 MG/2 ML Vial IVP PRN (16:44)
[2019-05-11] MEDS: Acetaminophen 325 MG TAB PO PRN (00:24)
[2019-05-11] MEDS: Ondansetron PF 4 MG/2 ML Vial IVP PRN (00:25)
[2019-05-11] MEDS: Lactated Ringer's 1,000 ML IV SCH ×2 (01:53→07:15)
[2019-05-11 05:18] LABS: Mean Corpuscular HGB CONC 35.1 g/dL (32.0-36.0); Mean Corpuscular Hemoglobin 31.9 pg (27.0-31.0); Mean Corpuscular Volume 90.8 fL (78.0-98.0); Mean Platelet Volume 8.5 fL (7.4-10.4); Platelet Count 167 thou/uL (130-400); RBC Distribution Width 11.3 % (11.5-14.5); Red Blood Cell (RBC) Count 3.76 mill/uL (4.20-5.40); White Blood Cell (WBC) Count 4.7 thou/uL (4.8-10.8)
[2019-05-11 05:37] LABS: Anion Gap 11 mmol/L (10-20); BUN (Urea Nitrogen) 5 mg/dL (9.8-20.1); BUN/Creatinine Ratio 9.26; Calc. Creatinine Clearance 146 mL/min (70-130); Calcium 8.5 mg/dL (7.8-10.44); Carbon Dioxide 24 mmol/L (22-29); Chloride 106 mmol/L (98-107); Estimated GFR-MDRD Greater than 90; Glucose 106 mg/dL (70-105); Magnesium 1.5 mg/dL (1.6-2.6); Phosphorus 2.8 mg/dL (2.3-4.7); Potassium 3.5 mmol/L (3.5-5.1); Sodium 137 mmol/L (136-145)
[2019-05-11] MEDS ORDERED: Magnesium Sulfate 4 GM in Sodium Chloride 0.9% 250 ML 250 ML IVPB SCH (07:45)
[2019-05-11] MEDS: Famotidine/PF 20 mg/2ml Vial SLOW IVP SCH (08:57)
[2019-05-11] MEDS: Enoxaparin Sodium 40 MG/0.4 ML SYRINGE SC SCH (08:58)
[2019-05-11] MEDS: Famotidine 20 MG TAB PO SCH (08:58)
[2019-05-11] MEDS: metFORMIN 500 MG TAB PO SCH (08:58)
[2019-05-11] MEDS ORDERED: Insulin Glargine 50 UNITS in Pre-Filled Syringe 1 EACH SC SCH (09:00)
[2019-05-11 12:42] VITALS: BP 127/62; TEMP 98.4
--- NOTE | 2019-05-11 20:24 | DIS ---
DATE OF ADMISSION: 05/09/2019 DATE OF DISCHARGE: 05/11/2019 PRIMARY CARE PROVIDER: [facility]. DISCHARGE DIAGNOSES: 1. Acute gastroenteritis. 2. Uncontrolled diabetes mellitus with hemoglobin A1c of 12. 3. Early diabetic ketoacidosis. 4. Acute kidney injury. 5. Morbid obesity. 6. Metabolic acidosis. 7. Acute anemia. 8. Volume depletion. 9. Hypokalemia. 10. Hypomagnesemia. 11. Hyponatremia. HOSPITAL COURSE: A 53-year-old female with obesity, diabetes, admitted with acute onset of frequent emesis and loose stools associated with abdominal pain and generalized weakness as well as dizziness and near syncope. On presentation, the patient was found to have hyperglycemia as well as high anion gap metabolic acidosis and ketonemia. Impression of uncontrolled diabetes with early diabetic ketoacidosis due to acute gastroenteritis was made. The patient was started on aggressive IV fluids, as well as insulin therapy. Acute kidney injury noticed on presentation, resolved with IV fluid therapy. The patient also was found to have hyponatremia, which was felt to be due to volume contraction with appropriate ADH secretion. This resolved with IV fluid therapy. The patient also was found to have hypokalemia and hypomagnesemia, which were repleted appropriately. With IV fluid therapy, nausea, vomiting, abdominal pain, and dizziness resolved. Of note, stool culture panel and stool leukocytes were unremarkable. Diet was restarted and this was well tolerated. The patient remained stable and was subsequently discharged home. PHYSICAL EXAMINATION: VITAL SIGNS: Temperature 98.4, pulse 88, respiratory rate 16, SpO2 of 95% on room air, and blood pressure is 127/62. GENERAL: Obese female, in no obvious distress. Afebrile. Anicteric. Acyanotic. HEENT: Normocephalic, atraumatic. Oral mucosa is moist. NECK: Symmetric. Supple with no JVD. CARDIOVASCULAR: Regular rhythm and rate with normal heart sounds 1 and 2. RESPIRATORY: Good air entry bilaterally with no crackle or rhonchi or use of accessory muscles. GI: Full, soft, nontender, nondistended with normal bowel sounds. EXTREMITIES: Grossly normal looking atraumatic with no edema or erythema. CLINICAL ADMINISTRATOR: Conscious, alert, and oriented x3 with appropriate mental status. DISCHARGE CONDITION: Improved. DISCHARGE DISPOSITION: Home. DISCHARGE INSTRUCTION: Follow up with PCP in 7 days. The patient was advised to be compliant with medication as prescribed. DISCHARGE MEDICATIONS: 1. Humalog 0-15 units subcutaneously with meals according to sliding scale provided. 2. Levemir 50 units subcutaneously daily in the morning. 3. Metformin 500 mg p.o. b.i.d. This discharge took more than 33 minutes. Job ID: [id number]
--- NOTE | 2019-05-13 14:29 | EKG ---
Test Reason : ROUTINE Blood Pressure : / mmHG Vent. Rate : 100 BPM Atrial Rate : 100 BPM P-R Int : 150 ms QRS Dur : 090 ms QT Int : 374 ms P-R-T Axes : 029 -20 -06 degrees QTc Int : 482 ms Normal sinus rhythm Prolonged QT Abnormal ECG Confirmed by IBETH MERCADO, IVON ([id number]), mapping editor RADHA ANSARI ([id number]) on 05/13/2019 2:29:00 PM Referred By: Confirmed By:IVON CRISTINA MD
== END 2019-05-11 13:34 | disposition home or self-care (01) ==
LOC: ERS 08:25 → INTOOBSV 13:22 → 2SW 13:22
PROVIDERS: ADMIT Internal Medicine Nephrology; ATTEND Internal Medicine Nephrology
DX: K52.9 Noninfective gastroenteritis and colitis, unspecified (principal); E11.10 Type 2 diabetes mellitus with ketoacidosis without coma; E11.65 Type 2 diabetes mellitus with hyperglycemia; E87.6 Hypokalemia; E83.42 Hypomagnesemia; E78.5 Hyperlipidemia, unspecified; N17.9 Acute kidney failure, unspecified; D64.9 Anemia, unspecified; E86.9 Volume depletion, unspecified; E87.1 Hypo-osmolality and hyponatremia; E66.01 Morbid (severe) obesity due to excess calories; Z68.30 Body mass index [BMI] 30.0-30.9, adult; Z79.4 Long term (current) use of insulin
CPT/HCPCS: 36415; 36416; 74177; 80053; 80069; 81003; 81015; 81025; 82010; 82274; 82330; 82803; 83036; 83690; 83735; 84484; 85007; 85025; 85027; 87045; 87046; 87324; 87427; 87449; 93005; 96361; 96365; 96366; 96367; 96372; 96375; 96376; G0378; J1650; J1815; J2405; J2765; J3010; J3475; J3480; J7050; Q0162; Q9967

== ENCOUNTER 2019-06-13 16:39 | Observation (INO) | payer MEDICAID, SELFPAY ==
[~2019-06-13 16:39] MED LIST: Iopamidol-370 76% 500 ML 1 ML ONE
[2019-06-13 17:12] LABS: #Basophils 0.1 thou/uL (0.0-0.2); #Eosinphils 0.2 thou/uL (0.0-0.7); #Lymphocytes 3.5 thou/uL (1.20-3.40); #Monocytes 0.4 thou/uL (0.11-0.59); #Neutrophils 4.2 thou/uL (1.40-6.50); %Basophils 0.7 % (0.0-1.0); %Eosinophils 2.7 % (0.0-10.0); %Lymphocytes 41.7 % (21.0-51.0); %Monocytes 4.7 % (0.0-10.0); %Neutrophils 50.2 % (42.0-75.0); Mean Corpuscular Hemoglobin 30.9 pg (27.0-31.0); Mean Corpuscular Volume 90.8 fL (78.0-98.0); Mean Platelet Volume 7.6 fL (7.4-10.4); Platelet Count 230 thou/uL (130-400); RBC Distribution Width 11.4 % (11.5-14.5); Red Blood Cell (RBC) Count 4.52 mill/uL (4.20-5.40); White Blood Cell (WBC) Count 8.3 thou/uL (4.8-10.8)
[2019-06-13 17:32] LABS: ALT (SGPT) 39 U/L (8-55); AST (SGOT) 21 U/L (5-34); Albumin 4.2 g/dL (3.5-5.0); Alkaline Phosphatase 128 U/L (40-110); Anion Gap 11 mmol/L (10-20); BUN (Urea Nitrogen) 14 mg/dL (9.8-20.1); Bilirubin, Total 0.4 mg/dL (0.2-1.2); Calc. Creatinine Clearance 0 mL/min (70-130); Calcium 9.7 mg/dL (7.8-10.44); Carbon Dioxide 29 mmol/L (22-29); Chloride 102 mmol/L (98-107); Estimated GFR-MDRD 72; Globulin 3.2 g/dL (2.4-3.5); Glucose 223 mg/dL (70-105); Potassium 3.9 mmol/L (3.5-5.1); Protein, Total 7.4 g/dL (6.0-8.3); Sodium 138 mmol/L (136-145)
[2019-06-13] MEDS ORDERED: Morphine 4 MG/ML VIAL ONE (17:34)
[2019-06-13] MEDS ORDERED: Aspirin Chewable 81 MG TAB ONE (17:35)
[2019-06-13] MEDS ORDERED: Ketorolac Tromethamine 30 MG/ML VIAL ONE (17:35)
--- NOTE | 2019-06-13 17:42 | RAD ---
EXAM: CHEST ONE VIEW HISTORY: Chest pain COMPARISON: 04/22/2019 FINDINGS: The cardiac silhouette and pulmonary vasculature is within normal limits. The lungs are clear. There is a calcification adjacent9 to the right humeral head which may be secondary to calcific peritendinitis. There has been no significant interval change from prior study. IMPRESSION: No acute cardiopulmonary process.
--- NOTE | 2019-06-13 19:17 | CT ---
CTA OF THE CHEST 06/13/19 HISTORY: Sudden onset of right sided chest pain that began at 3 o'clock today. COMPARISON: 08/11/18. TECHNIQUE: Multiple contiguous axial images were obtained in a CTA of the chest with contrast per pulmonary embo lism protocol. 3D oblique MIP reformats were performed and direct coronal reformats were performed. FINDINGS: The pulmonary arteries are well opacified without filling defects to suggest pulmonary emboli. The he art is normal in size without focal cardiac abnormality. No hilar or mediastinal lymphadenopathy are seen. No focal infiltrates or nodules are seen in the lungs. No pneumothorax or pleural effusion are seen. The patient is status post cholecystectomy. The other visualized subdiaphragmatic structures are unre markable. Mild degenerative changes are seen in the spine. There is a prominent left axillary lymph n ode measuring 2.1 cm in size. The chest wall soft tissues are otherwise unremarkable. IMPRESSION: 1. No evidence of pulmonary thromboembolism. 2. Nonspecific enlarged left axillary lymph node. POS: [facility]
[2019-06-13 19:35] LABS: Bilirubin Negative (Negative); Blood, Urine Negative (Negative); Clarity Clear (Clear); Glucose, Urine (Dipstick) Greater than 1000 mg/dL (Negative); Leukocyte Negative Leu/uL (Negative); Nitrite Negative (Negative); Protein, Urine (Dipstick) 10 mg/dL (Neg-Trace); Urobilinogen Normal mg/dL (Less than 2)
[2019-06-13] MEDS ORDERED: Ondansetron PF 4 MG/2 ML Vial IVP PRN (21:44)
[2019-06-13] MEDS ORDERED: Ondansetron ODT 4 MG TAB SL PRN (21:44)
[2019-06-13] MEDS ORDERED: Lactated Ringer's 1,000 ML IV SCH (21:45)
[2019-06-13 22:09] VITALS: BMI 30.7
[2019-06-13] MEDS: Morphine 2 MG/ML SYRINGE SLOW IVP PRN (22:11)
[2019-06-14] MEDS: Morphine 2 MG/ML SYRINGE SLOW IVP PRN ×3 (03:05→23:20)
[2019-06-14] MEDS ORDERED: Acetaminophen 325 MG TAB PO PRN (07:39)
[2019-06-14] MEDS ORDERED: Bisacodyl 5 MG TAB PO PRN (07:39)
[2019-06-14] MEDS ORDERED: Ondansetron PF 4 MG/2 ML Vial IVP PRN (07:39)
[2019-06-14] MEDS ORDERED: Ondansetron ODT 4 MG TAB PO PRN (07:39)
[2019-06-14] MEDS ORDERED: Dextrose 50% Abboject 50 ML SYRINGE SLOW IVP PRN (07:41)
[2019-06-14] MEDS ORDERED: HumaLOG 300 UNITS/3 ML VIAL SC PRN (07:41)
[2019-06-14] MEDS ORDERED: Dextrose 5% in Water 1,000 ML IV PRN (07:41)
[2019-06-14] MEDS: Heparin 5,000 UNITS/ML VIAL SC SCH ×3 (08:28→21:00)
[2019-06-14] MEDS: HYDROcodone/Acetaminophen 5/325 mg Tablet PO PRN ×2 (08:29→15:07)
[2019-06-14] MEDS ORDERED: INSULIN DETEMIR 40 UNIT SC SCH (09:00)
[2019-06-14] MEDS ORDERED: Insulin Glargine 40 UNITS in Pre-Filled Syringe 1 EACH SC SCH (09:00)
[2019-06-14] MEDS ORDERED: Famotidine 20 MG TAB PO SCH (09:00)
[2019-06-14] MEDS ORDERED: Aspirin Chewable 81 MG TAB PO SCH (09:00)
[2019-06-14] MEDS ORDERED: ADENOSINE 60 MG/20 ML VIAL ONE (10:21)
--- NOTE | 2019-06-14 13:02 | NM ---
MYOCARDIAL PERFUSION SCAN: Patient was given 2 mCi of Technetium sestamibi for rest imaging and 30 mCi for stress imaging. INDICATION: Chest pain. The patient was stressed according to adenosine protocol. The left ventricle was imaged with SPECT i maging and CT attenuation. FINDINGS: On nonattenuation images there is symmetric and normal activity throughout the left ventricle on stre ss and rest images. Mild thinning in the inferolateral wall is symmetric on stress and rest images. No evidence of reversible ischemia. Ejection fraction recorded at 73%. IMPRESSION: No evidence of reversible ischemia. POS: [facility]
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
[2019-06-14] MEDS: Potassium Chloride 20 MEQ in Lactated Ringer's 1,000 ML IV SCH (15:09)
[2019-06-14] MEDS: Ibuprofen 800 MG TAB PO SCH (17:44)
[2019-06-14] MEDS: Famotidine 20 MG TAB PO SCH (17:44)
[2019-06-14] MEDS: HumaLOG 300 UNITS/3 ML VIAL SC PRN (17:44)
[2019-06-14] MEDS ORDERED: Atorvastatin Calcium 10 MG TAB PO SCH (21:00)
[2019-06-14] MEDS: Insulin Glargine 20 UNITS in Pre-Filled Syringe SC SCH (21:01)
[2019-06-15] MEDS: Morphine 2 MG/ML SYRINGE SLOW IVP PRN (04:24)
[2019-06-15] MEDS: Potassium Chloride 20 MEQ in Lactated Ringer's 1,000 ML IV SCH (04:27)
[2019-06-15 04:38] LABS: #Basophils 0.1 thou/uL (0.0-0.2); #Eosinphils 0.3 thou/uL (0.0-0.7); #Lymphocytes 2.5 thou/uL (1.20-3.40); #Monocytes 0.3 thou/uL (0.11-0.59); #Neutrophils 2.6 thou/uL (1.40-6.50); %Basophils 1.1 % (0.0-1.0); %Eosinophils 4.8 % (0.0-10.0); %Monocytes 4.6 % (0.0-10.0); %Neutrophils 45.5 % (42.0-75.0); Mean Corpuscular HGB CONC 35.4 g/dL (32.0-36.0); Mean Corpuscular Hemoglobin 32.5 pg (27.0-31.0); Mean Corpuscular Volume 91.8 fL (78.0-98.0); Mean Platelet Volume 7.2 fL (7.4-10.4); Platelet Count 179 thou/uL (130-400); RBC Distribution Width 11.4 % (11.5-14.5); Red Blood Cell (RBC) Count 3.99 mill/uL (4.20-5.40); White Blood Cell (WBC) Count 5.7 thou/uL (4.8-10.8)
[2019-06-15 04:59] LABS: Anion Gap 11 mmol/L (10-20); BUN (Urea Nitrogen) 14 mg/dL (9.8-20.1); Calc. Creatinine Clearance 121 mL/min (70-130); Calcium 8.7 mg/dL (7.8-10.44); Carbon Dioxide 24 mmol/L (22-29); Chloride 102 mmol/L (98-107); Estimated GFR-MDRD Greater than 90; Glucose 291 mg/dL (70-105); Sodium 133 mmol/L (136-145)
[2019-06-15] MEDS: HumaLOG 300 UNITS/3 ML VIAL SC PRN (05:42)
[2019-06-15] MEDS: HYDROcodone/Acetaminophen 5/325 mg Tablet PO PRN (05:50)
[2019-06-15] MEDS: Insulin Glargine 20 UNITS in Pre-Filled Syringe SC SCH (08:21)
[2019-06-15] MEDS: Famotidine 20 MG TAB PO SCH (08:21)
[2019-06-15] MEDS: Heparin 5,000 UNITS/ML VIAL SC SCH (08:21)
[2019-06-15] MEDS: Ibuprofen 800 MG TAB PO SCH (08:21)
[2019-06-15 08:34] VITALS: BP 116/57; TEMP 98.4
[2019-06-15] MEDS ORDERED: Aspirin 81 mg Enteric Coated Tablet PO SCH (09:00)
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
== END 2019-06-15 10:05 | disposition home or self-care (01) ==
LOC: ERS 16:39 → 2SW 21:49
PROVIDERS: ADMIT Internal Medicine; ATTEND Internal Medicine
DX: M94.0 Chondrocostal junction syndrome [Tietze] (principal); E11.9 Type 2 diabetes mellitus without complications; I10 Essential (primary) hypertension; E78.5 Hyperlipidemia, unspecified; E78.00 Pure hypercholesterolemia, unspecified; R59.0 Localized enlarged lymph nodes; E66.01 Morbid (severe) obesity due to excess calories; Z68.30 Body mass index [BMI] 30.0-30.9, adult; Z79.4 Long term (current) use of insulin; V49.40XA Driver injured in collision with unspecified motor vehicles in traffic accident, initial encounter
CPT/HCPCS: 36415; 36416; 71045; 71275; 78452; 80048; 80053; 81003; 83690; 84484; 85025; 85379; 93005; 93017; 93306; 94760; 96361; 96372; 96374; 96375; 96376; A9500; G0378; J0153; J1644; J1815; J1885; J2270; J3480; J7120; Q9967

== ENCOUNTER 2021-06-14 09:40 | Emergency (ER) | payer OTHER, SELFPAY | END 2021-06-14 13:15 | disposition home or self-care (01) | LOC: ERS 09:40 | DX: S39.012A Strain of muscle, fascia and tendon of lower back, initial encounter (principal); M25.552 Pain in left hip; M51.35 Other intervertebral disc degeneration, thoracolumbar region; M25.70 Osteophyte, unspecified joint; I10 Essential (primary) hypertension; E11.9 Type 2 diabetes mellitus without complications; E78.5 Hyperlipidemia, unspecified; W01.0XXA Fall on same level from slipping, tripping and stumbling without subsequent striking against object, initial encounter; Z79.4 Long term (current) use of insulin | CPT/HCPCS: 36416; 72040; 72072; 72100; 72170; 96372 ==

== ENCOUNTER 2022-02-13 22:13 | Emergency (ER) | payer SELFPAY ==
[2022-02-13 22:56] LABS: Bacteria/HPF None Seen HPF (None Seen); Bilirubin Negative (Negative); Blood, Urine Negative (Negative); Clarity Turbid (Clear); Glucose, Urine (Dipstick) Greater than 1000 mg/dL (Negative); Ketone, Urine Negative (Negative); Leukocyte 75 Leu/uL (Negative); Nitrite Negative (Negative); Protein, Urine (Dipstick) Negative (Neg-Trace); RBC/HPF 0-3 HPF (0-3); Squamous Epithelial 0-3 HPF (0-3); WBC/HPF 0-3 HPF (0-3)
[2022-02-13 23:13] LABS: #Basophils 0.1 thou/uL (0.0-0.2); #Eosinphils 0.3 thou/uL (0.0-0.7); #Lymphocytes 3.4 thou/uL (1.20-3.40); #Monocytes 0.6 thou/uL (0.11-0.59); #Neutrophils 4.4 thou/uL (1.40-6.50); %Basophils 0.8 % (0.0-1.0); %Eosinophils 3.3 % (0.0-10.0); %Lymphocytes 38.5 % (21.0-51.0); %Monocytes 6.6 % (0.0-10.0); %Neutrophils 50.8 % (42.0-75.0); Hemoglobin 13.1 g/dL (12.0-16.0); Mean Corpuscular HGB CONC 33.4 g/dL (32.0-36.0); Mean Corpuscular Hemoglobin 31.8 pg (27.0-31.0); Mean Corpuscular Volume 95.2 fL (78.0-98.0); Mean Platelet Volume 7.8 fL (7.4-10.4); Platelet Count 194 thou/uL (130-400); RBC Distribution Width 11.3 % (11.5-14.5); White Blood Cell (WBC) Count 8.7 thou/uL (4.8-10.8)
[2022-02-13 23:34] LABS: Anion Gap 13 mmol/L (10-20); BUN (Urea Nitrogen) 13 mg/dL (9.8-20.1); Calc. Creatinine Clearance 0 mL/min (70-130); Carbon Dioxide 24 mmol/L (22-29); Chloride 102 mmol/L (98-107); Potassium 3.9 mmol/L (3.5-5.1); Sodium 135 mmol/L (136-145)
[2022-02-13 23:35] LABS: ALT (SGPT) 30 U/L (8-55); AST (SGOT) 20 U/L (5-34); Albumin 3.7 g/dL (3.5-5.0); Alkaline Phosphatase 114 U/L (40-110); Bilirubin, Total 0.7 mg/dL (0.2-1.2); Calcium 9.1 mg/dL (7.8-10.44); Estimated GFR 72; Globulin 3.4 g/dL (2.4-3.5); Glucose 256 mg/dL (70-105); Protein, Total 7.1 g/dL (6.0-8.3)
== END 2022-02-14 00:19 | disposition home or self-care (01) ==
LOC: ERS 22:13
DX: L25.3 Unspecified contact dermatitis due to other chemical products (principal); I10 Essential (primary) hypertension; E11.9 Type 2 diabetes mellitus without complications; E78.5 Hyperlipidemia, unspecified
CPT/HCPCS: 36415; 80053; 81003; 81015; 85025; 99283

== ENCOUNTER 2022-02-28 12:16 | Inpatient (IN) | payer SELFPAY ==
[2022-02-28 13:00] LABS: #Eosinphils 0.2 thou/uL (0.0-0.7); #Lymphocytes 2.1 thou/uL (1.20-3.40); #Monocytes 0.3 thou/uL (0.11-0.59); #Neutrophils 4.3 thou/uL (1.40-6.50); %Basophils 0.5 % (0.0-1.0); %Eosinophils 2.4 % (0.0-10.0); %Lymphocytes 30.3 % (21.0-51.0); %Monocytes 4.9 % (0.0-10.0); %Neutrophils 61.9 % (42.0-75.0); Hemoglobin 13.4 g/dL (12.0-16.0); Mean Corpuscular HGB CONC 32.8 g/dL (32.0-36.0); Mean Corpuscular Hemoglobin 30.5 pg (27.0-31.0); Mean Corpuscular Volume 93.1 fL (78.0-98.0); Mean Platelet Volume 7.6 fL (7.4-10.4); Platelet Count 201 thou/uL (130-400); RBC Distribution Width 11.3 % (11.5-14.5); Red Blood Cell (RBC) Count 4.38 mill/uL (4.20-5.40)
[2022-02-28] MEDS ORDERED: Nitroglycerin 0.4 MG TAB 1 EACH ONE ×2 (13:12→17:22)
[2022-02-28] MEDS ORDERED: Aspirin Chewable 81 MG TAB ONE (13:12)
[2022-02-28 13:57] LABS: ALT (SGPT) 39 U/L (8-55); AST (SGOT) 26 U/L (5-34); Alkaline Phosphatase 124 U/L (40-110); Anion Gap 12 mmol/L (10-20); BUN (Urea Nitrogen) 14 mg/dL (9.8-20.1); Bilirubin, Total 0.6 mg/dL (0.2-1.2); CK (CPK) 55 U/L (29-168); Calc. Creatinine Clearance 0 mL/min (70-130); Calcium 9.4 mg/dL (7.8-10.44); Carbon Dioxide 24 mmol/L (22-29); Chloride 101 mmol/L (98-107); Estimated GFR 92; Globulin 3.6 g/dL (2.4-3.5); Glucose 317 mg/dL (70-105); Lipase 27 U/L (8-78); Protein, Total 7.6 g/dL (6.0-8.3); Sodium 133 mmol/L (136-145)
[2022-02-28] MEDS ORDERED: Iopamidol 370 76% 100 ML VIAL ONE (14:04)
[2022-02-28] MEDS ORDERED: Acetaminophen 325 MG TAB ONE (16:23)
[2022-02-28 16:29] LABS: Troponin I Less than 0.010 ng/mL (< 0.028)
[2022-02-28] MEDS ORDERED: Ondansetron ODT 4 MG TAB PO PRN (16:54)
[2022-02-28] MEDS ORDERED: Dextrose 5% in Water 1,000 ML IV PRN (16:54)
[2022-02-28] MEDS ORDERED: Insulin Regular 300 UNITS/3 ML VIAL SC PRN (16:54)
[2022-02-28] MEDS ORDERED: Dextrose 50% Abboject 50 ML SYRINGE SLOW IVP PRN (16:54)
[2022-02-28] MEDS ORDERED: Enoxaparin Sodium 40 MG/0.4 ML SYRINGE SC SCH (17:00)
[2022-02-28] MEDS ORDERED: Aspirin 325 MG TAB PO SCH (17:15)
[2022-02-28] MEDS: Nitroglycerin 0.4 MG TAB (25 Tab Bottle) SL PRN ×4 (17:24→21:45)
[2022-02-28 17:35] LABS: Magnesium 1.8 mg/dL (1.6-2.6)
[2022-02-28] MEDS ORDERED: Enoxaparin Sodium 40 MG/0.4 ML SYRINGE ONE (17:37)
[2022-02-28 20:11] LABS: Troponin I Less than 0.010 ng/mL (< 0.028)
[2022-02-28 20:14] VITALS: BMI 32.8
[2022-02-28 21:01] LABS: SARS-CoV-2 NAA Rapid Test Not Detected (NotDetected)
[2022-02-28] MEDS: Atorvastatin Calcium 10 MG TAB PO SCH (21:22)
[2022-02-28] MEDS: Acetaminophen 325 MG TAB PO PRN (21:52)
[2022-02-28] MEDS ORDERED: Morphine 2 MG/ML VIAL SLOW IVP PRN (22:03)
[2022-03-01] MEDS: Nitroglycerin 2% Ointment 1 INCH/1 GM Packet TOP SCH ×2 (01:20→11:43)
[2022-03-01 05:06] LABS: #Eosinphils 0.2 thou/uL (0.0-0.7); #Lymphocytes 2.7 thou/uL (1.20-3.40); #Monocytes 0.4 thou/uL (0.11-0.59); #Neutrophils 2.9 thou/uL (1.40-6.50); %Basophils 0.5 % (0.0-1.0); %Eosinophils 3.7 % (0.0-10.0); %Monocytes 5.9 % (0.0-10.0); Hemoglobin 12.4 g/dL (12.0-16.0); Mean Corpuscular HGB CONC 33.7 g/dL (32.0-36.0); Mean Corpuscular Hemoglobin 31.4 pg (27.0-31.0); Mean Corpuscular Volume 93.2 fL (78.0-98.0); Mean Platelet Volume 8.2 fL (7.4-10.4); Platelet Count 195 thou/uL (130-400); RBC Distribution Width 11.3 % (11.5-14.5); Red Blood Cell (RBC) Count 3.94 mill/uL (4.20-5.40); White Blood Cell (WBC) Count 6.3 thou/uL (4.8-10.8)
[2022-03-01 05:19] LABS: Hemoglobin A1c 11.1 % (4.0-6.0)
[2022-03-01 05:24] LABS: Anion Gap 13 mmol/L (10-20); BUN (Urea Nitrogen) 14 mg/dL (9.8-20.1); Calc. Creatinine Clearance 100 mL/min (70-130); Calcium 8.9 mg/dL (7.8-10.44); Carbon Dioxide 23 mmol/L (22-29); Cardiac Risk 3.7 (Less than 4.5); Chloride 103 mmol/L (98-107); Cholesterol 167 mg/dl (< 200 Desired); Estimated GFR 85; Glucose 377 mg/dL (70-105); HDL Cholesterol 45 mg/dL (>60 Neg Risk); LDL Cholesterol, Calculated 73 mg/dL; Potassium 4.1 mmol/L (3.5-5.1); Sodium 135 mmol/L (136-145); Triglycerides 246 mg/dL (Less than 150)
[2022-03-01] MEDS: HumaLOG 300 UNITS/3 ML VIAL SC PRN ×2 (06:25→16:51)
[2022-03-01] MEDS: Acetaminophen 325 MG TAB PO PRN ×2 (09:58→18:49)
[2022-03-01] MEDS: PARoxetine 20 MG TAB PO SCH (09:58)
[2022-03-01] MEDS: Enoxaparin Sodium 40 MG/0.4 ML SYRINGE SC SCH (09:58)
[2022-03-01] MEDS: Aspirin 81 mg Enteric Coated Tablet PO SCH (09:58)
[2022-03-01] MEDS: Insulin Glargine 30 UNITS/0.3 ML VIAL SC SCH ×2 (11:43→21:40)
[2022-03-01] MEDS: Atorvastatin Calcium 10 MG TAB PO SCH (21:33)
[2022-03-02] MEDS ORDERED: HumaLOG 300 UNITS/3 ML VIAL SC PRN (01:25)
[2022-03-02] MEDS ORDERED: Electrolyte Replacement Protocol 1 EACH FS SCH (01:30)
[2022-03-02] MEDS: Nitroglycerin 2% Ointment 1 INCH/1 GM Packet TOP SCH ×2 (01:32→12:56)
[2022-03-02 05:16] LABS: Anion Gap 13 mmol/L (10-20); BUN (Urea Nitrogen) 16 mg/dL (9.8-20.1); Calc. Creatinine Clearance 106 mL/min (70-130); Calcium 8.4 mg/dL (7.8-10.44); Carbon Dioxide 19 mmol/L (22-29); Chloride 105 mmol/L (98-107); Estimated GFR 92; Glucose 287 mg/dL (70-105); Magnesium 1.7 mg/dL (1.6-2.6); Potassium 4.4 mmol/L (3.5-5.1); Sodium 133 mmol/L (136-145)
[2022-03-02 05:46] LABS: #Eosinphils 0.2 thou/uL (0.0-0.7); #Lymphocytes 2.7 thou/uL (1.20-3.40); #Monocytes 0.4 thou/uL (0.11-0.59); #Neutrophils 2.6 thou/uL (1.40-6.50); %Basophils 0.7 % (0.0-1.0); %Lymphocytes 44.7 % (21.0-51.0); %Monocytes 6.8 % (0.0-10.0); %Neutrophils 43.7 % (42.0-75.0); Hemoglobin 13.3 g/dL (12.0-16.0); Mean Corpuscular HGB CONC 34.2 g/dL (32.0-36.0); Mean Corpuscular Hemoglobin 32.6 pg (27.0-31.0); Mean Corpuscular Volume 95.3 fL (78.0-98.0); Platelet Count 91 thou/uL (130-400); Platelet Morphology Comment Appears Decreased; RBC Distribution Width 11.3 % (11.5-14.5); Red Blood Cell (RBC) Count 4.07 mill/uL (4.20-5.40)
[2022-03-02] MEDS: HumaLOG 300 UNITS/3 ML VIAL SC PRN (06:34)
[2022-03-02 07:43] VITALS: TEMP 98
[2022-03-02] MEDS ORDERED: Magnesium 2 GM/50 ML(in water) 2 GM in Premix Bag 1 BAG IVPB SCH (08:00)
[2022-03-02] MEDS: Enoxaparin Sodium 40 MG/0.4 ML SYRINGE SC SCH ×2 (12:55→13:00)
[2022-03-02] MEDS: Insulin Glargine 30 UNITS/0.3 ML VIAL SC SCH (12:56)
[2022-03-02] MEDS: Aspirin 81 mg Enteric Coated Tablet PO SCH (12:56)
[2022-03-02] MEDS: PARoxetine 20 MG TAB PO SCH (12:56)
[2022-03-02 15:24] VITALS: BP 157/72
== END 2022-03-02 16:35 | disposition home or self-care (01) | DRG 313 ==
LOC: ERS 12:16 → ERHOLD 15:35 → 2NO 19:41 → OBSVTOIN 03-01 15:53
PROVIDERS: ADMIT Internal Medicine; ATTEND Internal Medicine
DX: R07.9 Chest pain, unspecified (principal); E11.9 Type 2 diabetes mellitus without complications; I10 Essential (primary) hypertension; E78.5 Hyperlipidemia, unspecified; Z79.4 Long term (current) use of insulin; Z20.822 Contact with and (suspected) exposure to COVID-19; Z90.49 Acquired absence of other specified parts of digestive tract; E66.9 Obesity, unspecified; Z79.84 Long term (current) use of oral hypoglycemic drugs; Z79.82 Long term (current) use of aspirin; Z83.3 Family history of diabetes mellitus; Z68.32 Body mass index [BMI] 32.0-32.9, adult
CPT/HCPCS: 36415; 36416; 71045; 71275; 78452; 80048; 80053; 80061; 82550; 83036; 83690; 83735; 83880; 84443; 84484; 85025; 85379; 93005; 93017; 94760; 96372; A9500; G0378; J1650; J1815; J2270; J3475; Q9967

== ENCOUNTER 2023-02-06 15:22 | Emergency (ER) | payer SELFPAY ==
[2023-02-06 15:53] LABS: #Eosinphils 0.1 thou/uL (0.0-0.7); #Monocytes 0.5 thou/uL (0.11-0.59); #Neutrophils 4.1 thou/uL (1.40-6.50); %Basophils 0.5 % (0.0-1.0); %Eosinophils 1.7 % (0.0-10.0); %Lymphocytes 36.4 % (21.0-51.0); %Monocytes 6.5 % (0.0-10.0); %Neutrophils 54.8 % (42.0-75.0); Hematocrit 38.4 % (36.0-47.0); Mean Corpuscular HGB CONC 33.9 g/dL (32.0-36.0); Mean Corpuscular Hemoglobin 30.8 pg (27.0-31.0); Mean Platelet Volume 9.9 fL (7.4-10.4); Platelet Count 212 10x3/uL (130-400); RBC Distribution Width 12.2 % (11.5-14.5); Red Blood Cell (RBC) Count 4.22 mill/uL (4.20-5.40); White Blood Cell (WBC) Count 7.4 10x3/uL (4.8-10.8)
[2023-02-06 16:22] LABS: ALT (SGPT) 62 U/L (8-55); AST (SGOT) 37 U/L (5-34); Albumin 3.8 g/dL (3.5-5.0); Alkaline Phosphatase 113 U/L (40-110); Anion Gap 12 mmol/L (10-20); BUN (Urea Nitrogen) 15 mg/dL (9.8-20.1); Bilirubin, Total 0.3 mg/dL (0.2-1.2); Calc. Creatinine Clearance 0 mL/min (70-130); Calcium 9.7 mg/dL (7.8-10.44); Carbon Dioxide 23 mmol/L (22-29); Chloride 101 mmol/L (98-107); Estimated GFR 78; Globulin 3.4 g/dL (2.4-3.5); Glucose 301 mg/dL (70-105); Potassium 3.9 mmol/L (3.5-5.1); Protein, Total 7.2 g/dL (6.0-8.3); Sodium 132 mmol/L (136-145)
[2023-02-06] MEDS ORDERED: Ketorolac Tromethamine 30 MG/ML VIAL ONE (16:55)
[2023-02-06] MEDS ORDERED: Acetaminophen 500 MG TAB ONE (16:55)
[2023-02-06 18:30] LABS: Troponin I Less than 0.010 ng/mL (< 0.028)
== END 2023-02-06 19:55 | disposition home or self-care (01) ==
LOC: ERS 15:22
DX: M54.9 Dorsalgia, unspecified (principal); E11.9 Type 2 diabetes mellitus without complications; Z79.82 Long term (current) use of aspirin; Z79.4 Long term (current) use of insulin
CPT/HCPCS: 36415; 71045; 80053; 84484; 85025; 93005; 96374; J1885

== ENCOUNTER 2023-10-12 22:02 | Emergency (ER) | payer SELFPAY ==
[2023-10-12 22:53] LABS: #Basophils Less than 0.03 10x3/uL (0.0-0.2); %Basophils 0.3 % (0.0-1.0); %Eosinophils 3.1 % (0.0-10.0); %Lymphocytes 33.2 % (21.0-51.0); %Neutrophils 57.3 % (42.0-75.0); Hematocrit 37.7 % (36.0-47.0); Hemoglobin 13.1 g/dL (12.0-16.0); Mean Corpuscular HGB CONC 34.7 g/dL (32.0-36.0); Mean Corpuscular Hemoglobin 31.7 pg (27.0-31.0); Mean Corpuscular Volume 91.3 fL (78.0-98.0); Mean Platelet Volume 10.1 fL (7.4-10.4); Platelet Count 168 10x3/uL (130-400); RBC Distribution Width 11.9 % (11.5-14.5); Red Blood Cell (RBC) Count 4.13 mill/uL (4.20-5.40)
[2023-10-12 23:11] LABS: ALT (SGPT) 45 U/L (8-55); AST (SGOT) 42 U/L (5-34); Albumin 3.5 g/dL (3.5-5.0); Alkaline Phosphatase 100 U/L (40-110); Anion Gap 14 mmol/L (10-20); BUN (Urea Nitrogen) 12 mg/dL (9.8-20.1); Bilirubin, Total 0.6 mg/dL (0.2-1.2); Calc. Creatinine Clearance 0 mL/min (70-130); Calcium 9.2 mg/dL (7.8-10.44); Carbon Dioxide 23 mmol/L (22-29); Chloride 102 mmol/L (98-107); Estimated GFR 85; Globulin 3.2 g/dL (2.4-3.5); Glucose 374 mg/dL (70-105); Magnesium 1.7 mg/dL (1.6-2.6); Potassium 4.1 mmol/L (3.5-5.1); Protein, Total 6.7 g/dL (6.0-8.3); Sodium 135 mmol/L (136-145)
[2023-10-12 23:14] LABS: Troponin I Less than 0.010 ng/mL (< 0.028)
[2023-10-13 00:42] LABS: Influenza A by NAA Not Detected (NotDetected); Influenza B by NAA Not Detected (NotDetected); SARS-CoV-2 NAA Rapid Test Not Detected (NotDetected)
[2023-10-13 01:55] LABS: Bacteria/HPF None Seen HPF (None Seen); Bilirubin Negative (Negative); Blood, Urine Negative (Negative); CAUTI Indications for Culture Pelvic or flank pain; Clarity Clear (Clear); Glucose, Urine (Dipstick) Greater than 1000 mg/dL (Negative); Ketone, Urine 10 mg/dL (Negative); Leukocyte 75 Leu/uL (Negative); Nitrite Negative (Negative); Protein, Urine (Dipstick) Negative (Neg-Trace); RBC/HPF 0-3 HPF (0-3); Specific Gravity, Urine 1.023 (1.002-1.036); Urobilinogen Normal mg/dL (Less than 2)
[2023-10-13 01:56] LABS: Urine Culture Reflex No No
[2023-10-13] MEDS ORDERED: Insulin Glargine 30 UNITS/0.3 ML VIAL SC SCH (03:45)
[2023-10-13] MEDS ORDERED: metFORMIN 500 MG TAB PO SCH (03:45)
[2023-10-13] MEDS ORDERED: Alogliptin 6.25 MG TAB PO SCH (03:45)
[2023-10-13] MEDS ORDERED: Ketorolac Tromethamine 30 MG (1 mL) VIAL ONE (03:58)
[2023-10-13 05:15] LABS: Troponin I Less than 0.010 ng/mL (< 0.028)
== END 2023-10-13 05:06 | disposition home or self-care (01) ==
LOC: ERS 22:02
DX: E11.65 Type 2 diabetes mellitus with hyperglycemia (principal); Z79.4 Long term (current) use of insulin; Z79.899 Other long term (current) drug therapy
CPT/HCPCS: 36415; 36416; 71045; 80053; 81001; 83735; 84484; 85025; 93005; 96361; 96374; J1815; J1885